=== PATIENT | female | born 1945 | race Caucasian/White ===

== ENCOUNTER 2018-02-17 09:17 | Outpatient (CLI) | payer OTHER ==
[~2018-02-17 09:17] MED LIST: BACITRACIN TP; CARDIZEM CD 180 MG PO; MORPHINE 5 MG/ML IV; OXYC1TAB9 PO; OxyCONTIN PO; Synthroid PO; XARELTO 10MG PO; Xopenex 0.63 MG/3 ML SOLUTION IH
== END 2018-02-17 09:23 | disposition home or self-care (01) ==
LOC: RX STUDY 09:17
DX: R13.11 Dysphagia, oral phase (principal)

== ENCOUNTER 2021-12-27 07:15 | Inpatient (IN) | payer OTHER ==
[~2021-12-27] VITALS: Ht 157.5 cm; Wt 59.9 kg
[2021-12-27] MEDS ORDERED: SINGULAIR 10MG10 MG PO (10:57)
[2021-12-27] MEDS ORDERED: ADULT LOW DOSE81 M1 PO (10:58)
[2021-12-27] MEDS ORDERED: ROSUVASTATIN CA40 MG PO (10:58)
[2021-12-27] MEDS ORDERED: RAYOS5 MG PO (10:58)
[2021-12-27] MEDS ORDERED: CANDESARTAN CILE8 MG PO (10:58)
[2021-12-27] MEDS ORDERED: WIXELA 100-501 EACH IH (10:59)
[2021-12-27] MEDS ORDERED: SPIRIVA RESPIMAT4 G1 IH (10:59)
[2021-12-30] MEDS ORDERED: TIROSINT112 MCG (10:29)
[2021-12-30] MEDS ORDERED: LEVOXYL137 MCG (10:29)
[2021-12-30] MEDS ORDERED: CARDIZEM CD180 M1 (10:30)
[2021-12-30] MEDS ORDERED: ROSUVASTATIN CAL5 MG (10:31)
[2021-12-30] MEDS ORDERED: ZANAFLEX2 MG (10:31)
[2021-12-30] MEDS ORDERED: IBANDRONATE SO150 MG (10:31)
[2021-12-30] MEDS ORDERED: IBUPROFEN800 MG (10:32)
[2021-12-30] MEDS ORDERED: WIXELA 500-501 EACH (10:32)
[2022-01-01] MEDS ORDERED: OXYC1TAB9 PO (15:01)
[2022-01-01] MEDS ORDERED: BACTRIM DS TAB1 EACH PO (15:01)
[2022-01-01] MEDS ORDERED: XARELTO10 MG PO (15:01)
[2022-01-01] MEDS ORDERED: INTEGRA PLUS C1 EACH PO (15:01)
== END 2022-01-01 22:34 | disposition designated cancer center or children's hospital (05) | DRG 470 ==
LOC: SURG 12-30 05:20 → O/R 12-30 05:20 → SURG 12-30 07:15
PROVIDERS: ADMIT Orthopaedic Surgery Sports Medicine; ATTEND Orthopaedic Surgery Sports Medicine
PROC: 0SRD0J9 Replacement of Left Knee Joint with Synthetic Substitute, Cemented, Open Approach (ICD-10-PCS; principal; 2021-12-30 11:30)
DX: M17.12 Unilateral primary osteoarthritis, left knee (principal); E03.8 Other specified hypothyroidism; I10 Essential (primary) hypertension; Z20.822 Contact with and (suspected) exposure to COVID-19